=== PATIENT | female | born 1995 | race Caucasian/White ===

== ENCOUNTER 2017-04-24 07:41 | Emergency (ER) | payer OTHER ==
[2017-04-24 07:47] VITALS: BP 161/84; PULSE 87; RESP 18; TEMP 98; O2SAT 97
[2017-04-24 08:25] LABS: AUTOMATED NEUTROPHIL # 5.6 TH/MM3 (1.8-7.7); BASOPHIL # 0.1 TH/MM3 (0-0.2); BASOPHIL % 0.6 % (0.0-2.0); EOSINOPHIL # 0.1 TH/MM3 (0-0.4); EOSINOPHIL % 1.5 % (0.0-4.0); HEMATOCRIT 46.3 % (35.0-46.0); HEMOGLOBIN 15.8 GM/DL (11.6-15.3); LYMPH % 31.6 % (9.0-44.0); MEAN CELL VOLUME 86.2 FL (80.0-100.0); MEAN CORPUSCULAR HEMOGLOBIN 29.5 PG (27.0-34.0); MEAN CORPUSCULAR HGB CONC 34.2 % (32.0-36.0); MEAN PLATELET VOLUME 8.8 FL (7.0-11.0); MONO % 6.6 % (0.0-8.0); MONOCYTE # 0.6 TH/MM3 (0-0.9); NEUT % 59.7 % (16.0-70.0); PLATELET COUNT 250 TH/MM3 (150-450); RED BLOOD COUNT 5.36 MIL/MM3 (4.00-5.30); RED CELL DISTRIBUTION WIDTH 13.7 % (11.6-17.2); WHITE BLOOD COUNT 9.4 TH/MM3 (4.0-11.0)
[2017-04-24 08:32] LABS: PROTHROMBIN TIME - PATIENT 9.9 SEC (9.8-11.6)
[2017-04-24 08:37] LABS: BICARBONATE 26.9 MEQ/L (21.0-32.0); BLOOD UREA NITROGEN 11 MG/DL (7-18); CALCIUM 9.3 MG/DL (8.5-10.1); CHLORIDE 105 MEQ/L (98-107); CREATININE 0.61 MG/DL (0.50-1.00); GLOMERULAR FILTRATION RATE 122 ML/MIN (>89); GLUCOSE,RANDOM 100 MG/DL (74-106); SODIUM (NA) 140 MEQ/L (136-145)
--- NOTE | 2017-04-24 08:37 | RADRPT ---
EXAM DATE/TIME: 04/24/2017 08:20 [place] COMPARISON: No previous studies available for comparison. INDICATIONS : Short of breath MEDICAL HISTORY : Polycystic disease SURGICAL HISTORY : None. ENCOUNTER: Initial ACUITY: 1 day PAIN SCORE: 0/10 LOCATION: chest FINDINGS: PA and lateral views of the chest demonstrate the lungs to be symmetrically aerated without evidence of mass, infiltrate or effusion. The cardiomediastinal contours are unremarkable. Osseous structure s are intact. CONCLUSION: No acute cardiopulmonary process. Jimi Velazquez MD on April 24, 2017 at 8:35 Board Certified Radiologist. This report was verified electronically.
[2017-04-24 08:41] LABS: TROPONIN I LESS THAN 0.02 NG/ML (0.02-0.05)
[2017-04-24 08:51] LABS: BACTERIA, URINE OCC /hpf; BILIRUBIN, URINE NEG (NEG); BLOOD, URINE NEG (NEG); GLUCOSE,URINE NEG (NEG); KETONE, URINE NEG (NEG); MUCUS URINE FEW /lpf (OCC); NITRITE,URINE NEG (NEG); SQUAMOUS EPITHELIAL CELL URINE 5 /hpf (0-5); URINE COLOR YELLOW (YELLW/STRAW); URINE LEUKOCYTE ESTERASE NEG (NEG)
[2017-04-24 09:28] VITALS: BP 138/82; PULSE 84; RESP 16; O2SAT 99
[2017-04-24] MEDS ORDERED: ALUMINUM/MAGNESIUM/SIMETH 30 ML CUP PO ONE (09:30)
[2017-04-24] MEDS ORDERED: LIDOCAINE VISCOUS 2% SOLN 15 ML UDC PO ONE (09:30)
[2017-04-24] MEDS ORDERED: LORazepam 1 MG TAB PO ONE (09:30)
[2017-04-24] MEDS ORDERED: LEXA5TAB PO (09:31)
--- NOTE | 2017-04-24 09:45 | PD ---
HPI Chief Complaint: Cardiac Complaint Time Seen by Provider: 09:11 Travel History International Travel<30 days: No Contact w/Intl Traveler<30days: No Traveled to known affect area: No History of Present Illness HPI The patient was seen and examined in the presence of the nurse. This patient woke up at 5:30 AM and felt a central chest burning sensation. She then started to shake all over. She has history of anxiety is taking Lexapro for that. She also has PCO S but no other medical history. She has no fever or cough or shortness of breath. Symptoms severity was moderate but has gradually eased off and is just about resolved completely. No alleviating factors. No Exacerbating factors. Duration is 4 hours PFSH Past Medical History Anxiety: Yes Diminished Hearing: No Medical other: Yes (Polycystic ) Immunizations Current: Yes Tetanus Vaccination: Unknown Influenza Vaccination: No ?: Not LMP: 2 mos ago Past Surgical History Cholecystectomy: Yes Social History Alcohol Use: Yes (occ) Tobacco Use: Yes Substance Use: No Allergies-Medications (Allergen,Severity, Reaction): Coded Allergies: No Known Allergies (Unverified , 04/24/17) Reported Meds & Prescriptions Reported Meds & Active Scripts Active Reported Lexapro (Escitalopram Oxalate) 5 Mg Tab 5 Mg PO DAILY Review of Systems General / Constitutional: No: Fever Eyes: No: Visual changes HENT: No: Headaches Cardiovascular: Positive: Chest Pain or Discomfort Respiratory: No: Shortness of Breath Gastrointestinal: No: Abdominal Pain Genitourinary: No: Dysuria Musculoskeletal: No: Pain Skin: No Rash Neurologic: No: Weakness Psychiatric: Positive: Anxiety, No: Depression Endocrine: No: Polydipsia Hematologic/Lymphatic: No: Easy Bruising Physical Exam Narrative GENERAL: Well-nourished, well-developed patient in no apparent distress. SKIN: Focused skin assessment reveals no rash and nodules. Skin is Warm and dry. HEAD: Atraumatic. Normocephalic. EYES: Pupils equal and round. No scleral icterus. No injection or drainage. ENT: No nasal bleeding or discharge. Mucous membranes pink and moist. NECK: Trachea midline. No JVD. CARDIOVASCULAR: Regular rate and rhythm. No murmur appreciated. RESPIRATORY: No accessory muscle use. Clear to auscultation. Breath sounds equal bilaterally. GASTROINTESTINAL: Abdomen soft, non-tender, nondistended. Hepatic and splenic margins not palpable. MUSCULOSKELETAL: No obvious deformities. No clubbing. No cyanosis. No edema. NEUROLOGICAL: Awake and alert. No obvious cranial nerve deficits. Motor grossly within normal limits. Normal speech. PSYCHIATRIC: Slightly anxious mood and affect; insight and judgment normal. Data Data Last Documented VS Vital Signs Date Time Temp Pulse Resp B/P (MAP) Pulse Ox O2 Delivery O2 Flow Rate FiO2 04/24/17 09:32 Room Air 04/24/17 09:28 84 16 138/82 (100) 99 04/24/17 07:47 98.0 Orders Orders Electrocardiogram (04/24/17 07:49) Complete Blood Count With Diff (04/24/17 07:49) Basic Metabolic Panel (Bmp) (04/24/17 07:49) Ckmb (Isoenzyme) Profile (04/24/17 07:49) Troponin I (04/24/17 07:49) Oximetry (04/24/17 07:49) Chest, Pa & Lat (04/24/17 ) Act Partial Throm Time (Ptt) (04/24/17 07:49) Prothrombin Time / Inr (Pt) (04/24/17 07:49) Ed Urine Pregnancytest Poc (04/24/17 07:49) Urinalysis - C+S If Indicated (04/24/17 08:06) Lidocaine 2% Viscous (Xylocaine 2% Visco (04/24/17 09:30) Al-Mag Hy-Si 40-40-4 Mg/Ml Liq (Mag-Al P (04/24/17 09:30) Lorazepam (Ativan) (04/24/17 09:30) Labs Laboratory Tests Test 04/24/17 08:02 White Blood Count 9.4 TH/MM3 Red Blood Count 5.36 MIL/MM3 Hemoglobin 15.8 GM/DL Hematocrit 46.3 % Mean Corpuscular Volume 86.2 FL Mean Corpuscular Hemoglobin 29.5 PG Mean Corpuscular Hemoglobin Concent 34.2 % Red Cell Distribution Width 13.7 % Platelet Count 250 TH/MM3 Mean Platelet Volume 8.8 FL Neutrophils (%) (Auto) 59.7 % Lymphocytes (%) (Auto) 31.6 % Monocytes (%) (Auto) 6.6 % Eosinophils (%) (Auto) 1.5 % Basophils (%) (Auto) 0.6 % Neutrophils # (Auto) 5.6 TH/MM3 Lymphocytes # (Auto) 3.0 TH/MM3 Monocytes # (Auto) 0.6 TH/MM3 Eosinophils # (Auto) 0.1 TH/MM3 Basophils # (Auto) 0.1 TH/MM3 CBC Comment DIFF FINAL Differential Comment Prothrombin Time 9.9 SEC Prothromb Time International Ratio 1.0 RATIO Activated Partial Thromboplast Time 25.2 SEC Urine Color YELLOW Urine Turbidity CLEAR Urine pH 6.0 Urine Specific Cameron 1.024 Urine Protein NEG mg/dL Urine Glucose (UA) NEG mg/dL Urine Ketones NEG mg/dL Urine Occult Blood NEG Urine Nitrite NEG Urine Bilirubin NEG Urine Urobilinogen LESS THAN 2.0 MG/DL Urine Leukocyte Esterase NEG Urine RBC 1 /hpf Urine WBC LESS THAN 1 /hpf Urine Squamous Epithelial Cells 5 /hpf Urine Bacteria OCC /hpf Urine Mucus FEW /lpf Microscopic Urinalysis Comment CULT NOT INDICATED Blood Urea Nitrogen 11 MG/DL Creatinine 0.61 MG/DL Random Glucose 100 MG/DL Calcium Level 9.3 MG/DL Sodium Level 140 MEQ/L Potassium Level 4.1 MEQ/L Chloride Level 105 MEQ/L Carbon Dioxide Level 26.9 MEQ/L Anion Gap 8 MEQ/L Estimat Glomerular Filtration Rate 122 ML/MIN Total Creatine Kinase 41 U/L Troponin I LESS THAN 0.02 NG/ML MDM Medical Decision Making Medical Screen Exam Complete: Yes Emergency Medical Condition: Yes Medical Record Reviewed: Yes Differential Diagnosis GERD, anxiety, costochondritis Narrative Course I have reviewed the patient's electronic medical record. So far extensive workup has been negative I reviewed her chest x-ray which is normal and her EKG is normal Complete lab survey is normal including metabolic studies and CBC and cardiac enzymes Presentation is not consistent with ACS or PE I don't feel she requires further imaging to rule out PE I think most likely she had anxiety issues alternatively could be a GERD phenomenon Therefore I have given her dose of Ativan as well as a viscous lidocaine/Maalox combination And I will reassess her in a brief while On reassessment she feels improved. Stable for outpatient follow-up Diagnosis Primary Impression: Non-cardiac chest pain Additional Instructions: The patient was advised to follow up with their physician and return if they worsen. Med/Other Pt SpecificInfo: Other Disposition: 01 DISCHARGE HOME Condition: Stable Rakan Duran MD Apr 24, 2017 09:45
--- NOTE | 2017-04-24 18:17 | EKG ---
Date Performed: 04/24/2017 Time Performed: 07:59:51 PTAGE: 21 years EKG: Sinus rhythm NONSPECIFIC ST ABNORMALITY ABNORMAL ECG NO PREVIOUS TRACING DOCTOR: Siddhartha Gutierrez Interpretating Date/Time 04/24/2017 18:16:24
== END 2017-04-24 10:47 | disposition home or self-care (01) ==
LOC: NEPD 07:41
DX: R07.89 Other chest pain (principal); R94.31 Abnormal electrocardiogram [ECG] [EKG]; F41.9 Anxiety disorder, unspecified; Z72.0 Tobacco use
CPT/HCPCS: 71046; 80048; 81001; 82550; 84484; 84703; 85025; 85610; 85730; 93005